=== PATIENT | female | born 2000 | race Caucasian/White ===

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

== ENCOUNTER 2019-06-22 14:15 | Emergency (ER) | payer BC ==
[2019-06-22 14:45] VITALS: BP 150/89
--- NOTE | 2019-06-22 14:49 | UC ---
Throat Pain/Nasal Freddy HPI - HPI Summary HPI Summary: 19-year-old female who has had congested cough over the past 1 or 2 weeks. The patient had a sore throat in May and was seen in the ER and had a CT to check for throat abscess that was negative. She states today her main complaint is the congested cough and not a sore throat. - History of Current Complaint Chief Complaint: UCRespiratory Stated Complaint: CONGESTION,COUGH Time Seen by Provider: 06/22/19 14:31 Hx Obtained From: Patient Hx Last Menstrual Period: 05/29/19 ?: No Onset/Duration: Gradual Onset Severity: Mild Pain Intensity: 4 Cough: Productive - Productive cough of yellowish brown sputum. Associated Signs & Symptoms: Positive: Nasal Discharge - Allergies/Home Medications Allergies/Adverse Reactions: Allergies Allergy/AdvReac Type Severity Reaction Status Date / Time minocycline Allergy Hives Verified 06/22/19 14:46 PMH/Surg Hx/FS Hx/Imm Hx Previously Healthy: Yes - Surgical History Surgical History: Yes Surgery Procedure, Year, and Place: tonsilectomy 09/2018 - Family History Known Family History: Positive: Cardiac Disease, Hypertension - Social History Occupation: Student Lives: Dormitory/Roommates Alcohol Use: Occasionally Substance Use Type: None Smoking Status (MU): Never Smoked Tobacco - Immunization History Most Recent Influenza Vaccination: no Vaccination Up to Date: Yes Review of Systems All Other Systems Reviewed And Are Negative: Yes ENT: Positive: Nasal Discharge Respiratory: Positive: Shortness Of Breath - Patient states occasionally with exertion she will have mild shortness of breath., Cough - Productive cough of yellowish brown sputum. Is Patient Immunocompromised?: No Physical Exam Triage Information Reviewed: Yes Appearance: Well-Appearing, No Pain Distress, Well-Nourished Vital Signs: Initial Vital Signs Temp 99.3 F 06/22/19 14:37 Pulse 95 06/22/19 14:37 Resp 22 06/22/19 14:37 BP 150/89 06/22/19 14:37 Pulse Ox 100 06/22/19 14:37 Vital Signs Reviewed: Yes Eyes: Positive: Conjunctiva Clear ENT: Positive: Pharynx normal, TMs normal, Uvula midline Neck: Positive: Supple, Nontender, No Lymphadenopathy Respiratory: Positive: No respiratory distress, No accessory muscle use, Rhonchi - Scattered rhonchi but with good air movement. Cardiovascular: Positive: RRR, No Murmur, Pulses Normal, Brisk Capillary Refill Musculoskeletal Exam: Normal Neurological Exam: Normal Psychological Exam: Normal Skin Exam: Normal Throat Pain/Nasal Course/Dx - Course Course Of Treatment: Patient is comfortable here. I am going to treat her with a Z-Khris and follow- up at the [facility] if no improvement by Wednesday or Wednesday. Patient is agreeable to this plan of action. Rapid strep test negative. - Differential Dx/Diagnosis Provider Diagnosis: Bronchitis Discharge ED - Sign-Out/Discharge Documenting (check all that apply): Patient Departure All imaging exams completed and their final reports reviewed: No Studies - Discharge Plan Condition: Good Disposition: HOME Prescriptions: Azithromyxin KHRIS (NF) [Z-Khris (Zithromax) 250 mg tabs #6] 2 tab PO .TODAY, THEN 1 DAILY #6 tab Patient Education Materials: Acute Bronchitis (ED) Referrals: No Primary Care Phys,NOPCP [Primary Care Provider] - JASPAL BINGHAM [, APPLICATION, OTHER] - Additional Instructions: Increase fluids, rest, definite follow-up at the [facility] on Wednesday if no improvement. - Billing Disposition and Condition Condition: GOOD Disposition: Home
== END 2019-06-22 15:13 | disposition home or self-care (01) ==
LOC: UCCORT 14:15
DX: J40 Bronchitis, not specified as acute or chronic (principal); R09.81 Nasal congestion; Z88.1 Allergy status to other antibiotic agents
CPT/HCPCS: 87651; 99212; G0463